=== PATIENT | female | born 1935 | race Caucasian/White ===

== ENCOUNTER 2022-11-16 12:49 | Inpatient (IN) ==
--- NOTE | 2022-11-16 13:09 | Emergency Department Note ---
Altered Mental Status HPI General Chief Complaint: Altered Mental Status Stated Complaint: unresponsive Time Seen by Provider: 11/16/22 12:59 Source: EMS Mode of arrival: EMS Limitations: altered mental status History of Present Illness HPI Narrative: Narrative: This 87-year-old presents from the long-term with a decreasing level of consciousness and tachypnea. She was recently treated for pneumonia with doxycycline and I believe some IV fluids. Patient is a DNR as expressed by her family; further, she does not want anything done to prolong her life, including antibiotics. She is a as of 18 months ago, and has continued to mourn for her . The family expresses the desire that we respect those wishes. Patient's past medical history includes TIA, cognitive dysfunction, chronic renal disease stage III. 2 of her daughters are in the room with her; 1 of whom is an design lead, and explained their situation. Related Data Home Medications Medication Instructions Recorded Confirmed coenzyme Q10 100 mg capsule 100 mg PO QDAY 08/13/21 01/17/22 (CoQ-10) magnesium PO 08/13/21 01/17/22 rivastigmine 13.3 mg/24 hour 13.3 mg transdermal QDAY 08/13/21 01/17/22 transdermal patch turmeric 500 mg-black pepper cap PO 08/13/21 01/17/22 extract 3 mg capsule aspirin 81 mg tablet,delayed 81 mg PO QDAY 08/15/21 01/17/22 release calcium citrate 250 mg 2 tab PO BID 08/15/21 01/17/22 calcium-vitamin D3 5 mcg (200 unit) tablet (Citracal Regular) Previous Rx's Medication Instructions Recorded melatonin 5 mg capsule 5 mg PO .qhs PRN sleep difficulty 08/15/21 #90 caps sulfamethoxazole 800 1 tab PO BID 3 days #6 tabs 01/21/22 mg-trimethoprim 160 mg tablet (Bactrim DS) rosuvastatin 5 mg tablet 5 mg PO QDAY #90 tabs 09/02/22 atropine 1 mg/mL injection solution 1 mg inhalation Q6H PRN mucus 11/16/22 secretions #25 mL morphine 10 mg/5 mL oral solution 10 mg (5 mL) PO Q2H PRN dyspnea 11/16/22 #500 mL Allergies Allergy/AdvReac Type Severity Reaction Status Date / Time cephalexin [From Keflex] Allergy Unknown Unknown Verified 11/16/22 12:50 Review of Systems ROS ROS Narrative: Narrative: Limitations: ROS unobtainable due to patients medical condition PFS Narrative Patient History Narrative: Narrative: Medical/Surgical/Family History All Active Problems (Updated 11/27/22 @ 16:46 by Tray Pryor MD) Pneumonia (Acute) Dyspnea (Acute) Comfort measures only status (Acute) DNR (do not resuscitate) (Acute) Unresponsive (Acute) Fall (Acute) Minor head injury (Acute) Laceration of scalp (Acute) Frequent falls (Acute) Occipital scalp laceration (Acute) Hydrocephalus (Acute) Urge incontinence of urine (Acute) Confusion (Acute) Encounter for biopsy (Acute) Difficulty sleeping (Acute) Neoplasm of uncertain behavior (Acute) Asymptomatic menopausal state (Acute) TIA (transient ischemic attack) (Acute) Cognitive dysfunction (Acute) Kidney cysts (Acute) Iron deficiency (Acute) RLS (restless legs syndrome) (Acute) Chronic kidney disease, stage III (moderate) (Acute) Hypercholesterolemia (Acute) Osteopenia (Acute) Lumbosacral spinal stenosis (Acute) Skin cancer (Acute) Heart murmur (Acute) Medical History (Updated 11/27/22 @ 16:46 by Tray Pryor MD) Chronic kidney disease, stage III (moderate) We will check renal panel today. Blood pressure appears well controlled. Avoid NSAIDs. Cognitive dysfunction Likely vascular dementia. Possible Alzheimer's. On rivastigmine 13.3 mg transdermal daily Comfort measures only status Confusion DNR (do not resuscitate) Dyspnea Heart murmur Hypercholesterolemia With history of possible TIA in March 2021 Taking Crestor 5 mg daily and aspirin 81 mg daily We will check lipid panel Iron deficiency Kidney cysts Lumbosacral spinal stenosis Osteopenia DEXA scan in May 2019 showed T score -1.6 at the left hip She was on Fosamax for about 5 years. Her daughter believes it was stopped in 2019. Continue vitamin D and calcium supplement Daily weightbearing exercise also recommended Repeat DEXA scan now RLS (restless legs syndrome) Skin cancer TIA (transient ischemic attack) Unresponsive Urge incontinence of urine Surgical History No pertinent past surgical history Family History Father Cancer of kidney Mother Skin cancer Dementia High blood pressure Sister Dementia High blood pressure Social History Smoking Status: Never smoker Alcohol Intake Frequency: holiday/special occasion only Substance Use: does not use Exam Narrative Narrative: Narrative: Patient sleeping and not arousable. Skin: Well perfused and hydrated without exanthem. Lungs coarse rhonchi bilateral without wheezing or rales. CV: Rapid rate and regular rhythm without murmurs clicks rubs or gallops. Abdomen: Soft nonguarding no masses or hepatosplenomegaly appreciated. General Limitations: altered mental status Course Vital Signs Vital signs: Vital Signs Temperature 99.4 F H 11/16/22 12:50 Pulse Rate 139 H 11/16/22 12:50 Respiratory Rate 29 H 11/16/22 12:50 Blood Pressure 85/54 11/16/22 12:50 Pulse Oximetry (%) 95 11/16/22 12:50 Oxygen Delivery Method 11/16/22 12:50 Temperature 102.0 F H 11/18/22 07:26 Pulse Rate 160 H 11/18/22 07:26 Respiratory Rate 24 H 11/18/22 20:00 Blood Pressure 80/61 11/18/22 07:26 Pulse Oximetry (%) 83 L 11/18/22 07:26 Oxygen Delivery Method 11/18/22 07:26 MDM MDM Narrative Medical decision making narrative: Narrative: After discussing the case with case briefer, the family would like to admit the patient until Friday and so she can be transferred over to hospice this was related to the hospitalist. Discharge Plan Patient/Caregiver Discharge Instructions Pt seen by VICE PRESIDENT [employer]IOSTATIST[employer]/PA only: No Clinical Impression: Pneumonia, Cognitive dysfunction Patient Disposition: Xfer As Inpt ([facility]) Discharge Date/Time: 11/16/22 16:05
[2022-11-16] MEDS ORDERED: 0.9 % SODIUM CHLORIDE 10 ML SYRINGE IV SCH (14:00)
--- NOTE | 2022-11-16 15:43 | Internal Med History&Physical ---
HPI History of Present Illness Patient information: Note initiated : 11/16/22 at 3:39 pm Service Date, if different from initiated Date: [] Patient: Yazmin Griffin a 87 y/o F admitted on for unresponsive. Chief Complaint: [] History of present illness: Ms. Griffin is a 87 year old F Patient presents today from [facility] for decreased level of consciousness and tachypnea. She was recently discharged from [facility] yesterday for pneum onia. Family wanted to start hospice but unable due to the weekend. Patient was diagnosed with COVID at the care facility on the . She was admitted to [facility] on the with pneumonia. She was discharged on the . In the ED here she was tachycardic and tachypneic. She did have saturations remained stable on room air. Patient unresponsive. As per patient's wishes family state patient is to be comfort care only. Patient unresponsive at this time. Review of system: Unable to obtain as patient is unresponsive PFSH PFS All Active Problems (Updated 11/16/22 @ 11:49 by Aramis Chicas MD) Dyspnea (Acute) Comfort measures only status (Acute) DNR (do not resuscitate) (Acute) Unresponsive (Acute) Fall (Acute) Minor head injury (Acute) Laceration of scalp (Acute) Frequent falls (Acute) Occipital scalp laceration (Acute) Hydrocephalus (Acute) Urge incontinence of urine (Acute) Confusion (Acute) Encounter for biopsy (Acute) Difficulty sleeping (Acute) Neoplasm of uncertain behavior (Acute) Asymptomatic menopausal state (Acute) TIA (transient ischemic attack) (Acute) Cognitive dysfunction (Acute) Kidney cysts (Acute) Iron deficiency (Acute) RLS (restless legs syndrome) (Acute) Chronic kidney disease, stage III (moderate) (Acute) Hypercholesterolemia (Acute) Osteopenia (Acute) Lumbosacral spinal stenosis (Acute) Skin cancer (Acute) Heart murmur (Acute) Medical History (Updated 11/16/22 @ 11:49 by Aramis Chicas MD) Chronic kidney disease, stage III (moderate) We will check renal panel today. Blood pressure appears well controlled. Avoid NSAIDs. Cognitive dysfunction Likely vascular dementia. Possible Alzheimer's. On rivastigmine 13.3 mg transdermal daily Comfort measures only status Confusion DNR (do not resuscitate) Dyspnea Heart murmur Hypercholesterolemia With history of possible TIA in March 2021 Taking Crestor 5 mg daily and aspirin 81 mg daily We will check lipid panel Iron deficiency Kidney cysts Lumbosacral spinal stenosis Osteopenia DEXA scan in May 2019 showed T score -1.6 at the left hip She was on Fosamax for about 5 years. Her daughter believes it was stopped in 2018. Continue vitamin D and calcium supplement Daily weightbearing exercise also recommended Repeat DEXA scan now RLS (restless legs syndrome) Skin cancer TIA (transient ischemic attack) Unresponsive Urge incontinence of urine Surgical History No pertinent past surgical history Family History Father Cancer of kidney Mother Skin cancer Dementia High blood pressure Sister Dementia High blood pressure Social History marital status: smoking status: Never smoker alcohol intake frequency: holiday/special occasion only substance use type: does not use MEDS/ALLERGIES Home Medications and Allergies Home Medications Medication Instructions Recorded Confirmed Type coenzyme Q10 100 mg capsule 100 mg PO QDAY 08/13/21 01/17/22 History (CoQ-10) magnesium PO 08/13/21 01/17/22 History rivastigmine 13.3 mg/24 hour 13.3 mg transdermal QDAY 08/13/21 01/17/22 History transdermal patch turmeric 500 mg-black pepper cap PO 08/13/21 01/17/22 History extract 3 mg capsule aspirin 81 mg tablet,delayed 81 mg PO QDAY 08/15/21 01/17/22 History release calcium citrate 250 mg 2 tab PO BID 08/15/21 01/17/22 History calcium-vitamin D3 5 mcg (200 unit) tablet (Citracal Regular) melatonin 5 mg capsule 5 mg PO .qhs PRN sleep difficulty 08/15/21 01/17/22 Rx #90 caps sulfamethoxazole 800 1 tab PO BID 3 days #6 tabs 01/21/22 Rx mg-trimethoprim 160 mg tablet (Bactrim DS) rosuvastatin 5 mg tablet 5 mg PO QDAY #90 tabs 09/02/22 Rx atropine 1 mg/mL injection solution 1 mg inhalation Q6H PRN mucus 11/16/22 Rx secretions #25 mL morphine 10 mg/5 mL oral solution 10 mg (5 mL) PO Q2H PRN dyspnea 11/16/22 Rx #500 mL Allergies Allergy/AdvReac Type Severity Reaction Status Date / Time cephalexin [From Keflex] Allergy Unknown Unknown Verified 11/16/22 12:50 EXAM Constitutional Vitals: Temp Pulse Resp BP Pulse Ox O2 Del Method 99.4 F H 137 H 28 H 112/75 95 11/16/22 12:50 11/16/22 15:01 11/16/22 15:01 11/16/22 15:01 11/16/22 15:01 11/16/22 12:50 Exam: General: Unresponsive, No acute Distress Eyes/N/T: PERRL, Head/Neck: neck supple, normocephalic atraumatic CV: Tachycardic and regular, No murmurs, normal s1/s2 Pulm: Decreased BS b/l, tachypneic, no wheezing/rhonchi/rales, Abd: soft, , +BS x4 Ext: no clubbing/cyanosis/edema Neuro: Patient responds to touch by moving extremities but does not respond to voice, does not open eyes, does not speak Skin: warm/dry A/P Narrative A/P Narrative: A: *Recent pneumonia (RLL): *Recent COVID infection *Advanced dementia: *h/o TIA: *CKD III: *HLD: P: -Comfort care measures only -Patient and family support -If patient remains stable on Friday then she will be be discharged to nursing home facility on hospice. Time Spent With Patient Time: Total time spent is greater than 50% in coordination of care (as documented) at patient's floor/unit and/or counseling patient:
[2022-11-16] MEDS ORDERED: LACTOPEROXI/GLUC OXID/POT THIO 1 EACH GEL..EA. TOPICAL PRN (16:12)
[2022-11-16] MEDS ORDERED: ONDANSETRON 4 MG ODT TABLET SL PRN (16:12)
[2022-11-16] MEDS ORDERED: morphine 4 MG/ML VIAL NEB PRN (16:12)
[2022-11-16] MEDS ORDERED: morphine 2 MG/ML VIAL ONE (16:49)
[2022-11-16] MEDS ORDERED: LORazepam 2 MG/ML VIAL ONE (16:49)
[2022-11-16] MEDS: LORazepam 2 MG/ML VIAL IV PRN (16:51)
[2022-11-16] MEDS: morphine 4 MG/ML VIAL IV PRN (16:52)
[2022-11-16] MEDS: DOCUSATE SODIUM 100 MG CAPSULE PO SCH (19:57)
[2022-11-16] MEDS: 0.9 % SODIUM CHLORIDE 10 ML SYRINGE IV SCH (22:00)
[2022-11-17] MEDS: morphine 4 MG/ML VIAL IV PRN ×5 (01:58→20:00)
[2022-11-17] MEDS: 0.9 % SODIUM CHLORIDE 10 ML SYRINGE IV SCH ×4 (04:58→22:02)
--- NOTE | 2022-11-17 08:11 | Internal Med Progress Note ---
SUBJECTIVE Subjective Patient information: Note initiated : 11/17/22 at 8:11 am Service Date, if different from initiated Date: [] Patient: Yazmin Griffin a 87 y/o F admitted on 11/16/22 for unresponsive. Chief Complaint: [] Interval history: History of present illness: Ms. Griffin is a 87 year old F Patient presents today from [facility] for decreased level of consciousness and tachypnea. She was recently discharged from [facility] yesterday for pneumonia. Family wanted to start hospice but unable due to the weekend. Patient was diagnosed with COVID at the care facility on the . She was admitted to [facility] on the with pneumonia. She was discharged on the . In the ED here she was tachycardic and tachypneic. She did have saturations remained stable on room air. Patient unresponsive. As per patient's wishes family state patient is to be comfort care only. Patient unresponsive at this time. Review of system: Unable to obtain as patient is unresponsive 11/17 Patient minimally responsive. Vital signs relatively stable. Review of systems: Unable to obtain given patient's mentation Constitutional Vitals: Vital Signs Temp Pulse Resp BP Pulse Ox O2 Del Method 97.9 F 122 H 30 H 97/62 93 11/17/22 07:32 11/16/22 19:44 11/17/22 07:32 11/17/22 07:32 11/17/22 07:32 11/17/22 07:32 Period Temp Pulse Resp BP Sys/Cummings Pulse Ox O2 Del Method O2 Flow Rate Last 24 Hr 97.9 F-100.2 F 122-139 26-32 85-112/54-75 93-96 Room Air-Room Air Intake and Output 11/16/22 11/17/22 11/17/22 19:59 03:59 11:59 Intake Total 0 Balance 0 Weight 48.444 kg 49.305 kg Intake & Output: Intake & Output 11/16/22 11/17/22 11/17/22 19:59 03:59 11:59 Intake Total 0 Balance 0 Weight 48.444 kg 49.305 kg Intake: Oral 0 Other: Stool Size Small Small Stool Color Brown Brown Stool Consistency Soft Soft # Voids 0 Exam: General: Unresponsive, No acute Distress Eyes/N/T: Head/Neck: neck supple, CV: Tachycardic and regular, No murmurs, Pulm: Decreased BS b/l, tachypneic, no wheezing/rhonchi/rales, labored breathgin Abd: soft, , +BS x4 Ext: no clubbing/cyanosis/edema Neuro: Patient unresponsive to touch Skin: warm/dry OBJ DATA Labs Meds: Medications Docusate Sodium (Docusate Sodium 100 Mg Capsule) 100 mg PO BID [facility] Last Admin: 11/16/22 19:57 Dose: Not Given Glucose Oxid/Lactoperoxid/Muramidas (Lactoperoxi/Gluc Oxid/Pot Thio 1 Each Gel..Ea.) 1 each TOPICAL PRN PRN PRN Reason: Dry Mouth Lorazepam (Lorazepam 2 Mg/Ml Vial) 0 mg IV Q1HP PRN; Protocol PRN Reason: ANXIETY/SEDATION Last Admin: 11/16/22 16:51 Dose: 1 mg Morphine Sulfate (Morphine 4 Mg/Ml Vial) 2 - 6 mg IV Q1HP PRN; Protocol PRN Reason: Per Pain Protocol Last Admin: 11/17/22 04:57 Dose: 2 mg Morphine Sulfate (Morphine 4 Mg/Ml Vial) 4 mg NEB Q4HP PRN PRN Reason: Shortness Of Breath Ondansetron HCl (Ondansetron 4 Mg Odt Tablet) 4 mg SL Q4HP PRN; Protocol PRN Reason: Nausea And Vomiting Sodium Chloride (0.9 % Sodium Chloride 10 Ml Syringe) 10 ml IV Q8 [facility] Last Admin: 11/17/22 04:58 Dose: 10 ml A/P Narrative A/P Narrative: A: *Recent pneumonia (RLL): *Recent COVID infection *Advanced dementia: *h/o TIA: *CKD III: *HLD: P: -Comfort care measures only -Patient and family support -If patient remains stable on Friday then she will be be discharged to [facility] hospice. Time Spent With Patient Time: Total time spent is greater than 50% in coordination of care (as documented) at patient's floor/unit and/or counseling patient: QUALITY VTE Deep Vein Thrombosis/Pulmonary Embolism Present on Admission: No
[2022-11-17] MEDS: DOCUSATE SODIUM 100 MG CAPSULE PO SCH ×2 (08:35→19:59)
[2022-11-17] MEDS: LORazepam 2 MG/ML VIAL IV PRN ×2 (11:55→22:02)
[2022-11-18] MEDS: morphine 4 MG/ML VIAL IV PRN ×3 (02:10→19:12)
[2022-11-18] MEDS: 0.9 % SODIUM CHLORIDE 10 ML SYRINGE IV SCH ×3 (02:11→16:10)
--- NOTE | 2022-11-18 07:29 | Internal Med Progress Note ---
SUBJECTIVE Subjective Patient information: Note initiated : 11/18/22 at 7:29 am Service Date, if different from initiated Date: [] Patient: Yazmin Griffin a 87 y/o F admitted on 11/16/22 for unresponsive. Chief Complaint: [] Interval history: History of present illness: Ms. Griffin is a 87 year old F Patient presents today from [facility] for decreased level of consciousness and tachypnea. She was recently discharged from [facility] yesterday for pneumonia. Family wanted to start hospice but unable due to the weekend. Patient was diagnosed with COVID at the care facility on the . She was admitted to [facility] on the with pneumonia. She was discharged on the . In the ED here she was tachycardic and tachypneic. She did have saturations remained stable on room air. Patient unresponsive. As per patient's wishes family state patient is to be comfort care only. Patient unresponsive at this time. Review of system: Unable to obtain as patient is unresponsive 11/17 Patient minimally responsive. Vital signs relatively stable. 11/18 Patient unresponsive. Labored breathing. Vital signs increasingly abnormal. Review of systems: Unable to obtain given patient's mentation Constitutional Vitals: Vital Signs Temp Pulse Resp BP Pulse Ox O2 Del Method 102.0 F H 160 H 28 H 80/61 83 L 11/18/22 07:26 11/18/22 07:26 11/18/22 07:26 11/18/22 07:26 11/18/22 07:26 11/18/22 07:26 Period Temp Pulse Resp BP Sys/Cummings Pulse Ox O2 Del Method O2 Flow Rate Last 24 Hr 97.7 F-102.0 F 140-160 22-30 80-100/61-67 83-94 Room Air-Room Air Intake and Output 11/17/22 11/18/22 11/18/22 19:59 03:59 11:59 Output Total 1 1 1 Balance -1 -1 - Intake & Output: Intake & Output 11/17/22 11/18/22 11/18/22 19:59 03:59 11:59 Output Total 1 1 1 Balance -1 -1 -1 Output: # of times incontinent of urine 1 1 1 Other: Percent of Meal Consumed c. care # Voids 1 Exam: General: Unresponsive, No acute Distress Eyes/N/T: Head/Neck: neck supple, CV: Tachycardic and regular, No murmurs, Pulm: Decreased BS b/l, tachypneic, no wheezing/rhonchi/rales, breathing almost agonal Abd: soft, , +BS x4 Ext: no clubbing/cyanosis/edema Neuro: Patient unresponsive to touch/voice Skin: warm/dry OBJ DATA Labs Meds: Medications Docusate Sodium (Docusate Sodium 100 Mg Capsule) 100 mg PO BID [facility] Last Admin: 11/17/22 19:59 Dose: Not Given Glucose Oxid/Lactoperoxid/Muramidas (Lactoperoxi/Gluc Oxid/Pot Thio 1 Each Gel..Ea.) 1 each TOPICAL PRN PRN PRN Reason: Dry Mouth Lorazepam (Lorazepam 2 Mg/Ml Vial) 0 mg IV Q1HP PRN; Protocol PRN Reason: ANXIETY/SEDATION Last Admin: 11/17/22 22:02 Dose: 1 mg Morphine Sulfate (Morphine 4 Mg/Ml Vial) 2 - 6 mg IV Q1HP PRN; Protocol PRN Reason: Per Pain Protocol Last Admin: 11/18/22 02:10 Dose: 4 mg Morphine Sulfate (Morphine 4 Mg/Ml Vial) 4 mg NEB Q4HP PRN PRN Reason: Shortness Of Breath Ondansetron HCl (Ondansetron 4 Mg Odt Tablet) 4 mg SL Q4HP PRN; Protocol PRN Reason: Nausea And Vomiting Sodium Chloride (0.9 % Sodium Chloride 10 Ml Syringe) 10 ml IV Q8 [facility] Last Admin: 11/18/22 02:11 Dose: 10 ml A/P Narrative A/P Narrative: A: *Recent pneumonia (RLL): *Recent COVID infection *Advanced dementia: *h/o TIA: *CKD III: *HLD: P: -Comfort care measures only -Patient and family support -pt appears imminent Time Spent With Patient Time: Total time spent is greater than 50% in coordination of care (as documented) at patient's floor/unit and/or counseling patient: QUALITY VTE Deep Vein Thrombosis/Pulmonary Embolism Present on Admission: No
[2022-11-18] MEDS: DOCUSATE SODIUM 100 MG CAPSULE PO SCH ×2 (08:34→19:13)
[2022-11-18] MEDS: LORazepam 2 MG/ML VIAL IV PRN ×3 (08:34→19:11)
--- NOTE | 2022-11-19 07:12 | Death Note ---
Discharge Sum: Prov Provider Patient information: Note initiated : 11/19/22 at 7:10 am Service Date, if different from initiated Date: [] Patient: Yazmin Griffin a 87 y/o F admitted on 11/16/22 for unresponsive. Chief Complaint: [] Primary care physician: Graeme So DO Consults: 11/16/22 Consult to Physician [CONS] Stat Comment: Consulting Provider: Madhav Schroeder Reason For Exam: Physician to Consult Discharge Sum: Summary Date and Time Date of admission: 11/16/22 16:05 Date of : 11/18/22 Time of : 22:25 Summary Details: History of present illness: Ms. Griffin is a 87 year old F Patient presents today from [facility] for decreased level of consciousness and tachypnea. She was recently discharged from [facility] yesterday for pneumonia. Family wanted to start hospice but unable due to the weekend. Patient was diagnosed with COVID at the care facility on the . She was admitted to [facility] on the with pneumonia. She was discharged on the . In the ED here she was tachycardic and tachypneic. She did have saturations remained stable on room air. Patient unresponsive. As per patient's wishes family state patient is to be comfort care only. Patient unresponsive at this time. Review of system: Unable to obtain as patient is unresponsive 11/17 Patient minimally responsive. Vital signs relatively stable. 11/18 Patient unresponsive. Labored breathing. Vital signs increasingly abnormal. A: *Failure to Thrive: *Recent pneumonia (RLL): *Recent COVID infection *Advanced dementia: *h/o TIA: *CKD III: *HLD: Additional Data Attending physician: Madhav Schroeder
== END 2022-11-18 22:25 | disposition expired | DRG 951 ==
LOC: ED 12:49 → MEDSUR 16:05
PROVIDERS: ADMIT Internal Medicine; ATTEND Internal Medicine